=== PATIENT | female | born 1960 | race Caucasian/White ===

== ENCOUNTER → 2018-03-05 10:17 | Outpatient (CLI) | payer BC, SELFPAY ==
[2018-03-05 10:38] LABS: Hemoglobin A1C 8.3 % (0.0-7.0)
[2018-03-05 12:57] LABS: Alanine Aminotransferase 52 U/L (12-78); Albumin Level 3.8 gm/dL (3.4-5.0); Albumin/Globulin Ratio 1.1 (1.1-1.8); Alkaline Phosphatase 114 U/L (46-116); Aspartate Amino Transferase 31 U/L (15-37); Bilirubin,Total 1.4 mg/dL (0.2-1.0); Blood Urea Nitrogen 10 mg/dL (7-18); Calcium 9.1 mg/dL (8.5-10.1); Carbon Dioxide 28 mmol/L (21.0-32.0); Chloride 103 mmol/L (98-107); Chol/HDL Ratio 4.2 (1-3.5); Cholesterol 155 mg/dL (140-200); Creatinine,Serum 0.63 mg/dL (0.55-1.02); Estimated Glomerular Filt Rate 97 ml/min (>60); GFR (African American) 117 ML/MIN (>60); Globulin 3.4 gm/dl (1.3-3.2); Glucose 187 mg/dL (74-106); HDL Cholesterol 37 mg/dL (29-89); LDL Cholesterol 88 mg/dL (0-130); Sodium 141 mmol/L (136-145); Thyroid Stimulating Hormone 0.81 uIU/ml (0.358-3.740); Total Protein,Serum 7.2 gm/dL (6.4-8.2); Triglycerides 150 mg/dL (30-200); VLDL Cholesterol 30 mg/dL (0-40)
== END ==
PROVIDERS: Visit Provider Internal Medicine Adolescent Medicine
DX: E11.29 Type 2 diabetes mellitus with other diabetic kidney complication (principal); E03.9 Hypothyroidism, unspecified
CPT/HCPCS: 36415; 80053; 80061; 83036; 84443

== ENCOUNTER → 2018-06-11 10:43 | Outpatient (CLI) | payer BC, SELFPAY ==
[2018-06-11 13:14] LABS: Alanine Aminotransferase 36 U/L (12-78); Albumin Level 3.9 gm/dL (3.4-5.0); Albumin/Globulin Ratio 1.1 (1.1-1.8); Alkaline Phosphatase 115 U/L (46-116); Anion Gap 14.1 mEq/L (5-15); Aspartate Amino Transferase 17 U/L (15-37); Bilirubin,Total 1.4 mg/dL (0.2-1.0); Blood Urea Nitrogen 12 mg/dL (7-18); Calcium 8.8 mg/dL (8.5-10.1); Carbon Dioxide 29 mmol/L (21.0-32.0); Chloride 105 mmol/L (98-107); Chol/HDL Ratio 3.8 (1-3.5); Cholesterol 142 mg/dL (140-200); Creatinine,Serum 0.84 mg/dL (0.55-1.02); Estimated Glomerular Filt Rate 70 ml/min (>60); GFR (African American) 84 ML/MIN (>60); Globulin 3.5 gm/dl (1.3-3.2); Glucose 142 mg/dL (74-106); HDL Cholesterol 37 mg/dL (29-89); LDL Cholesterol 87 mg/dL (0-130); Potassium 4.1 mmoL/L (3.5-5.1); Sodium 144 mmol/L (136-145); Total Protein,Serum 7.4 gm/dL (6.4-8.2); Triglycerides 89 mg/dL (30-200); VLDL Cholesterol 18 mg/dL (0-40)
== END ==
PROVIDERS: Visit Provider Internal Medicine Adolescent Medicine
DX: E11.29 Type 2 diabetes mellitus with other diabetic kidney complication (principal); I10 Essential (primary) hypertension
CPT/HCPCS: 36415; 80053; 80061; 83036

== ENCOUNTER → 2018-06-15 17:20 | Outpatient (CLI) | payer BC, SELFPAY ==
--- NOTE | 2018-06-15 17:36 | XR_ITS ---
EXAM: XR lumbar spine min 4V HISTORY: ITS.REASON: LOW BACK PAIN AT MULTIPLE SITES ORDERING PHYSICIAN: Chino Siegel MD PATIENT AGE: 57 years COMPARISON: None FINDINGS: There is minimal lumbar curvature convex left. Alignment. No acute fracture or dislocation. Mild degenerative disc disease is present at L4-5 with mild facet arthritic changes noted at L4-5 and L5-S1. No lytic or blastic change. IMPRESSION: Mild lumbar spondylosis as described above with no acute finding
== END ==
PROVIDERS: PCP Internal Medicine Adolescent Medicine; Visit Provider Internal Medicine Adolescent Medicine
DX: M54.5 Low back pain (principal)
CPT/HCPCS: 72110

== ENCOUNTER → 2018-08-26 15:35 | Outpatient (CLI) | payer BC, SELFPAY ==
--- NOTE | 2018-08-26 15:42 | XR_ITS ---
XR cervical spine w flex/ext CLINICAL INDICATION: Neck pain ITS.REASON: CERVICAL RADICULOPATHY ORDERING PHYSICIAN: Chino Siegel MD PATIENT AGE: 57 years Comparison: None FINDINGS: Flexion-extension views are obtained of the cervical spine. No abnormal subluxation evident in flexion or extension. The disc spaces are well-preserved. IMPRESSION: No abnormal subluxation in flexion or extension
--- NOTE | 2018-08-26 15:42 | XR_ITS ---
EXAM: XR cervical spine 5V HISTORY: Left-sided neck pain with tingling ITS.REASON: CERVICAL RADICULOPATHY ORDERING PHYSICIAN: Chino Siegel MD PATIENT AGE: 57 years COMPARISON: None FINDINGS: Normal alignment. No fracture or dislocation. No lytic or blastic change. No significant degenerative change. The disc spaces are preserved. Carotid calcifications are present on both sides. IMPRESSION: 1. Negative cervical spine. 2. Carotid artery disease
== END ==
PROVIDERS: PCP Internal Medicine Adolescent Medicine; Visit Provider Internal Medicine Adolescent Medicine
DX: M54.12 Radiculopathy, cervical region (principal)
CPT/HCPCS: 72050; 72052

== ENCOUNTER → 2018-09-17 11:47 | Outpatient (CLI) | payer BC, SELFPAY ==
[2018-09-17 13:32] LABS: Alanine Aminotransferase 67 U/L (12-78); Albumin Level 3.7 gm/dL (3.4-5.0); Albumin/Globulin Ratio 1.1 (1.1-1.8); Alkaline Phosphatase 87 U/L (46-116); Anion Gap 9.9 mEq/L (5-15); Aspartate Amino Transferase 31 U/L (15-37); Bilirubin,Total 1.4 mg/dL (0.2-1.0); Blood Urea Nitrogen 13 mg/dL (7-18); Calcium 8.7 mg/dL (8.5-10.1); Carbon Dioxide 32 mmol/L (21.0-32.0); Chloride 103 mmol/L (98-107); Chol/HDL Ratio 3.8 (1-3.5); Cholesterol 152 mg/dL (140-200); Creatinine,Serum 0.77 mg/dL (0.55-1.02); Estimated Glomerular Filt Rate 77 ml/min (>60); GFR (African American) 93 ML/MIN (>60); Globulin 3.4 gm/dl (1.3-3.2); Glucose 160 mg/dL (74-106); HDL Cholesterol 40 mg/dL (29-89); LDL Cholesterol 81 mg/dL (0-130); Potassium 3.9 mmoL/L (3.5-5.1); Sodium 141 mmol/L (136-145); Thyroid Stimulating Hormone 2.76 uIU/ml (0.358-3.740); Total Protein,Serum 7.1 gm/dL (6.4-8.2); Triglycerides 156 mg/dL (30-200); VLDL Cholesterol 31 mg/dL (0-40)
[2018-09-17 13:55] LABS: Hemoglobin A1C 8.4 % (0.0-7.0)
== END ==
PROVIDERS: Visit Provider Internal Medicine Adolescent Medicine
DX: E11.29 Type 2 diabetes mellitus with other diabetic kidney complication (principal); E03.9 Hypothyroidism, unspecified; M54.5 Low back pain
CPT/HCPCS: 36415; 80053; 80061; 83036; 84443

== ENCOUNTER → 2019-03-23 10:45 | Outpatient (CLI) | payer BC, SELFPAY ==
[2019-03-23 11:26] LABS: Hemoglobin A1C 7.8 % (0.0-7.0)
== END ==
PROVIDERS: Visit Provider Internal Medicine Adolescent Medicine
DX: R60.0 Localized edema (principal)
CPT/HCPCS: 36415; 83036

== ENCOUNTER → 2019-07-08 09:25 | Outpatient (CLI) | payer BC, SELFPAY ==
[2019-07-08 09:52] LABS: Basophils % 0.4 % (0.1-2.0); Eosinophils # 0.3 K/mm3 (0.0-0.4); Eosinophils % 4.1 % (0.1-12.0); Hematocrit 46.8 % (37.0-47.0); Hemoglobin 14.9 g/dL (12.2-16.2); Lymphocytes % 24.5 % (10-50); Mean Corpuscular HGB Conc 31.8 g/dL (31.8-35.4); Mean Corpuscular Hemoglobin 26.9 pg (27.0-31.2); Mean Corpuscular Volume 84.4 fl (81-99); Mean Platelet Volume 7.2 fl (7.4-10.4); Monocytes # 0.6 K/mm3 (0.1-1.0); Monocytes % 7.4 % (1.7-9.3); Neutrophils # 5.1 K/mm3 (1.8-7.8); Neutrophils % 63.5 % (37.0-80.0); Platelet Count 267 K/mm3 (142-424); Red Blood Count 5.54 M/mm3 (4.20-5.40); Red Cell Distribution Width 14.9 % (11.5-17.5)
[2019-07-08 10:53] LABS: Alanine Aminotransferase 33 U/L (12-78); Albumin Level 3.7 gm/dL (3.4-5.0); Alkaline Phosphatase 93 U/L (46-116); Anion Gap 11.6 mEq/L (5-15); Aspartate Amino Transferase 23 U/L (15-37); Bilirubin,Total 1.4 mg/dL (0.2-1.0); Blood Urea Nitrogen 12 mg/dL (7-18); Calcium 8.5 mg/dL (8.5-10.1); Carbon Dioxide 31 mmol/L (21.0-32.0); Chloride 104 mmol/L (98-107); Chol/HDL Ratio 4.4 (1-3.5); Cholesterol 161 mg/dL (140-200); Creatinine,Serum 0.67 mg/dL (0.55-1.02); Estimated Glomerular Filt Rate 90 ml/min (>60); GFR (African American) 109 ML/MIN (>60); Globulin 3.6 gm/dl (1.3-3.2); Glucose 144 mg/dL (74-106); HDL Cholesterol 37 mg/dL (29-89); LDL Cholesterol 96 mg/dL (0-130); Potassium 4.6 mmoL/L (3.5-5.1); Sodium 142 mmol/L (136-145); Thyroid Stimulating Hormone 3.02 uIU/ml (0.358-3.740); Total Protein,Serum 7.3 gm/dL (6.4-8.2); Triglycerides 138 mg/dL (30-200); VLDL Cholesterol 28 mg/dL (0-40)
[2019-07-08 11:41] LABS: Hemoglobin A1C 8.1 % (0.0-7.0)
== END ==
PROVIDERS: Visit Provider Internal Medicine Adolescent Medicine
DX: E11.29 Type 2 diabetes mellitus with other diabetic kidney complication (principal); E03.9 Hypothyroidism, unspecified; K21.9 Gastro-esophageal reflux disease without esophagitis
CPT/HCPCS: 36415; 80053; 80061; 83036; 84443; 85025

== ENCOUNTER → 2019-08-25 16:01 | Outpatient (CLI) | payer BC, SELFPAY ==
--- NOTE | 2019-08-25 16:04 | MM_ITS ---
PROCEDURE: MM DIG SCREENING MAMM BI W/CAD CLINICAL INDICATION: SCREENING There is a history of breast cancer patient's paternal aunts. There has been a previous cyst aspiration right breast for benign disease. COMPARISON: DMSB DIG MAMM-SCREEN ANUJ W/CAD from 05/25/2017 TECHNIQUE: Standard CC and MLO images were obtained. R2 CAD reviewed. FINDINGS: Moderate scattered fibroglandular densities are seen throughout both breast most prominent upper outer quadrants and findings of bilateral and symmetrical. There few benign-appearing microcalcifications in each breast.. There is no suspicious lesion in either breast and no suspicious microcalcifications. There are fatty replaced nodes in both axilla. IMPRESSION: Moderate breast density with no suspicious lesions seen BI-RAD Category: 2 Benign Finding(s) FOLLOW-UP: 1YR 1 Year Follow-up (A letter has been sent to the patient regarding results of the study.) Dictated by: Dr. Petros Giron MD 08/29/2019 10:[address] Petros Giron MD in [place] 08/29/2019 10:08
== END ==
PROVIDERS: PCP Internal Medicine Adolescent Medicine; Visit Provider Internal Medicine Adolescent Medicine
DX: Z12.31 Encounter for screening mammogram for malignant neoplasm of breast (principal)
CPT/HCPCS: 77067

== ENCOUNTER → 2019-10-28 10:36 | Outpatient (CLI) | payer BC, SELFPAY ==
[2019-10-28 10:51] LABS: Basophils % 0.3 % (0.1-2.0); Eosinophils # 0.4 K/mm3 (0.0-0.4); Hematocrit 44.2 % (37.0-47.0); Hemoglobin 14.2 g/dL (12.2-16.2); Lymphocytes # 1.8 K/mm3 (0.7-4.5); Lymphocytes % 14.2 % (10-50); Mean Corpuscular HGB Conc 32.1 g/dL (31.8-35.4); Mean Corpuscular Hemoglobin 27.2 pg (27.0-31.2); Mean Corpuscular Volume 84.8 fl (81-99); Mean Platelet Volume 7.8 fl (7.4-10.4); Monocytes # 0.8 K/mm3 (0.1-1.0); Monocytes % 6.6 % (1.7-9.3); Neutrophils # 9.3 K/mm3 (1.8-7.8); Neutrophils % 75.9 % (37.0-80.0); Platelet Count 290 K/mm3 (142-424); Red Blood Count 5.21 M/mm3 (4.20-5.40); Red Cell Distribution Width 15.3 % (11.5-17.5); White Blood Count 12.3 K/mm3 (4.8-10.8)
[2019-10-28 11:59] LABS: Alanine Aminotransferase 23 U/L (12-78); Albumin Level 3.8 gm/dL (3.4-5.0); Albumin/Globulin Ratio 1.1 (1.1-1.8); Alkaline Phosphatase 97 U/L (46-116); Anion Gap 13.5 mEq/L (5-15); Aspartate Amino Transferase 12 U/L (15-37); Bilirubin,Total 1.5 mg/dL (0.2-1.0); Blood Urea Nitrogen 19 mg/dL (7-18); Calcium 9.2 mg/dL (8.5-10.1); Carbon Dioxide 30 mmol/L (21.0-32.0); Chloride 105 mmol/L (98-107); Chol/HDL Ratio 4.5 (1-3.5); Cholesterol 166 mg/dL (140-200); Creatinine,Serum 0.81 mg/dL (0.55-1.02); Estimated Glomerular Filt Rate 72 ml/min (>60); GFR (African American) 88 ML/MIN (>60); Globulin 3.4 gm/dl (1.3-3.2); Glucose 142 mg/dL (74-106); HDL Cholesterol 37 mg/dL (29-89); LDL Cholesterol 93 mg/dL (0-130); Potassium 4.5 mmoL/L (3.5-5.1); Sodium 144 mmol/L (136-145); Thyroid Stimulating Hormone 1.39 uIU/ml (0.358-3.740); Total Protein,Serum 7.2 gm/dL (6.4-8.2); Triglycerides 181 mg/dL (30-200); VLDL Cholesterol 36 mg/dL (0-40)
[2019-10-28 12:42] LABS: Hemoglobin A1C 7.6 % (0.0-7.0)
== END ==
PROVIDERS: Visit Provider Internal Medicine Adolescent Medicine
DX: E11.29 Type 2 diabetes mellitus with other diabetic kidney complication (principal); E03.9 Hypothyroidism, unspecified
CPT/HCPCS: 36415; 80053; 80061; 83036; 84443; 85025

== ENCOUNTER → 2020-05-07 10:15 | Outpatient (CLI) | payer BC, SELFPAY ==
[2020-05-07 11:04] LABS: Basophils % 0.4 % (0.1-2.0); Eosinophils # 0.3 K/mm3 (0.0-0.4); Eosinophils % 3.3 % (0.1-12.0); Hematocrit 47.6 % (37.0-47.0); Hemoglobin 15.6 g/dL (12.2-16.2); Lymphocytes # 2.3 K/mm3 (0.7-4.5); Lymphocytes % 25.7 % (10-50); Mean Corpuscular HGB Conc 32.8 g/dL (31.8-35.4); Mean Corpuscular Volume 85.2 fl (81-99); Mean Platelet Volume 7.6 fl (7.4-10.4); Monocytes # 0.6 K/mm3 (0.1-1.0); Monocytes % 6.9 % (1.7-9.3); Neutrophils # 5.7 K/mm3 (1.8-7.8); Neutrophils % 63.6 % (37.0-80.0); Platelet Count 276 K/mm3 (142-424); Red Blood Count 5.59 M/mm3 (4.20-5.40); Red Cell Distribution Width 16.2 % (11.5-17.5)
[2020-05-07 12:21] LABS: Chloride 95 mmol/L (98-107); Potassium 4.1 mmoL/L (3.5-5.1); Sodium 140 mmol/L (136-145)
[2020-05-07 12:23] LABS: Blood Urea Nitrogen 14 mg/dl (7-17); Estimated Glomerular Filt Rate 85 ml/min (>60); GFR (African American) 103 ML/MIN (>60)
[2020-05-07 12:24] LABS: Albumin Level 4.4 g/dl (3.5-5.0); Albumin/Globulin Ratio 1.5 (1.1-1.8); Alkaline Phosphatase 93 U/L (38-126); Anion Gap 16.1 mEq/L (5-15); Bilirubin,Total 1.4 mg/dl (0.2-1.3); Calcium 9.3 mg/dl (8.4-10.2); Carbon Dioxide 33 mmol/L (22.0-30.0); Cholesterol 176 mg/dl (140-200); Glucose 127 mg/dl (74-100); HDL Cholesterol 46 mg/dl (40-60); Total Protein,Serum 7.4 g/dl (6.3-8.2); Triglycerides 235 mg/dl (30-150); VLDL Cholesterol 47 mg/dL (0-40)
[2020-05-07 12:35] LABS: Direct LDL Cholesterol 102.73 mg/dL (100-129)
[2020-05-07 12:40] LABS: Alanine Aminotransferase 46 U/L (12-78); Aspartate Amino Transferase 39 U/L (14-36)
[2020-05-07 13:06] LABS: Hemoglobin A1C 8.7 % (4.0-6.0)
[2020-05-07 13:11] LABS: Thyroid Stimulating Hormone 3.19 uIU/mL (0.465-4.68)
[2020-05-07 15:17] LABS: Chol/HDL Ratio 3.8 (1-3.5)
== END ==
PROVIDERS: Visit Provider Internal Medicine Adolescent Medicine
DX: E11.29 Type 2 diabetes mellitus with other diabetic kidney complication (principal); E03.9 Hypothyroidism, unspecified
CPT/HCPCS: 36415; 80053; 80061; 83036; 84443; 85025

== ENCOUNTER → 2020-08-10 09:40 | Outpatient (CLI) | payer BC, SELFPAY ==
[2020-08-10 11:11] LABS: Chloride 98 mmol/L (98-107); Sodium 142 mmol/L (136-145)
[2020-08-10 11:12] LABS: Potassium 3.8 mmoL/L (3.5-5.1)
[2020-08-10 11:14] LABS: Alanine Aminotransferase 59 U/L (12-78); Albumin Level 4.2 g/dl (3.5-5.0); Albumin/Globulin Ratio 1.4 (1.1-1.8); Alkaline Phosphatase 86 U/L (38-126); Anion Gap 12.8 mEq/L (5-15); Aspartate Amino Transferase 48 U/L (14-36); Bilirubin,Total 1.3 mg/dl (0.2-1.3); Blood Urea Nitrogen 14 mg/dl (7-17); Calcium 9.7 mg/dl (8.4-10.2); Carbon Dioxide 35 mmol/L (22.0-30.0); Chol/HDL Ratio 3.3 (1-3.5); Cholesterol 138 mg/dl (140-200); Estimated Glomerular Filt Rate 85 ml/min (>60); GFR (African American) 103 ML/MIN (>60); Globulin 3.1 g/dL (1.3-3.2); Glucose 200 mg/dl (74-100); HDL Cholesterol 42 mg/dl (40-60); Total Protein,Serum 7.3 g/dl (6.3-8.2); Triglycerides 213 mg/dl (30-150); VLDL Cholesterol 43 mg/dL (0-40)
[2020-08-10 11:43] LABS: Direct LDL Cholesterol 68.08 mg/dL (100-129)
== END ==
PROVIDERS: Visit Provider Internal Medicine Adolescent Medicine
DX: E11.29 Type 2 diabetes mellitus with other diabetic kidney complication (principal); E78.5 Hyperlipidemia, unspecified
CPT/HCPCS: 36415; 80053; 80061; 83036

== ENCOUNTER 2020-08-19 14:04 | Emergency (ER) | payer BC, SELFPAY ==
[2020-08-19 14:27] VITALS: BP 219/109; PULSE 85; RESP 14; TEMP 37.2; O2SAT 99; BMI 29.1
--- NOTE | 2020-08-19 14:56 | HMH.EDUTC ---
[facility] [place] Clinical Impression: Exposure to COVID-19 virus, Encounter for laboratory testing for COVID-19 virus Disposition: Home, Self-Care Condition on Discharge: Good Instructions: Preventing the Spread of Coronavirus Discharge Instructions Additional Instructions: *Monitor Temp, Over the counter Motrin or Tylenol as directed/as needed Tylenol every 4 hours and Motrin every 6 hours (as long as your family doctor has told you that you can take it) for fever or pain. and straight to ER if unable to lower temp less than 101.0 after medication given *Warm salt water gargles may help to soothe the throat *Throat Lozenges *Warm fluids like tea with honey may help to soothe the throat *Sleep elevated *Humidifier/Vaporizer Follow up IMMEDIATELY for new or worsening symptoms or no Noticeable improvement over the next 48-72 hours. 911 for difficulty breathing or swallowing You was tested for today for COVID19 your test result should be back later this evening, you may call back later this evening to see if your test results are back and the result You was given a handout with instructions for Self Quarantine and Self isolation for while you wait on test results and what to do if they are positive Referrals: Chino Siegel MD [Primary Care Provider] - As needed Forms: Work/School Release Time of Disposition: 14:58 Medical Decision Making - Robbie Inquiry Pt receiving controlled substance: No Robbie was queried for this patient: No Vital Signs: 08/19/20 14:27 Temperature 98.9 F Temperature Source Oral Pulse Rate [Right Brachial] 85 Respiratory Rate 14 Blood Pressure [Right Arm] 219/109 H Blood Pressure Mean [Right Arm] 145 Blood Pressure Source [Right Arm] Automatic Cuff Blood Pressure Position [Right Arm] Sitting 02 Sat by Pulse Oximetry 99 Oxygen Delivery Method Room Air [facility] [place] - General Stated complaint: Covid exposure Time Seen by Provider: 08/19/20 14:56 Mode of Arrival: Ambulatory Source of Information: Patient Limitations: No Limitations Description of Symptoms (Recalled from Triage Doc. 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 State that she has not had any symptoms but was recommended that she get tested due to close contact - Related Data Allergies Allergy/AdvReac Type Severity Reaction Status Date / Time Contrast Media, Iodine Allergy Unknown I-RASH Uncoded 10/12/17 15:08 Related - Worker's Comp Is this a Worker's Comp case?: No [facility] History - Hepatitis A Screen Drug use history?: No High risk sexual behaviors?: No History of sexually transmitted infection?: No Currently employed?: No Childcare worker?: No Do you have indoor plumbing?: Yes Do you have electricity?: Yes Attestation statement:: This patient has been screened for Hepatitis A risk factors. I have reviewed the patient's past medical history: Yes - Social History Alcohol Intake: never Occupational Status: other ROS Obtained: Yes All systems reviewed & no additional complaints, Yes Systems reviewed as appropriate & no additional complaints - Constitutional Constitutional: Reports system reviewed and no additional complaints, except as docu, Denies body ache, Denies fatigue, Denies fever(s), Denies headache(s) - ENT Ears, Nose, Mouth, and Throat: Denies nasal congestion, Denies nasal discharge, Denies sinus pressure, Denies sore throat - Cardiovascular Cardiovascular: Reports system reviewed and no additional complaints, except as docu - Respiratory Respiratory: Yes system reviewed and no additional complain
[2020-08-19 15:05] VITALS: BP 219/109; PULSE 85; RESP 14; TEMP 37.2; O2SAT 99
== END 2020-08-19 15:06 | disposition home or self-care (01) ==
PROVIDERS: Emergency Provider Nurse Practitioner; PCP Internal Medicine Adolescent Medicine
DX: Z20.828 Contact with and (suspected) exposure to other viral communicable diseases (principal)
CPT/HCPCS: 99201; U0003

== ENCOUNTER → 2021-02-08 08:55 | Outpatient (CLI) | payer BC, SELFPAY ==
[2021-02-08 10:55] LABS: Hemoglobin A1C 8.4 % (4.0-6.0)
[2021-02-08 11:09] LABS: Chloride 99 mmol/L (98-107); Potassium 3.9 mmoL/L (3.5-5.1); Sodium 142 mmol/L (136-145)
[2021-02-08 11:11] LABS: Alanine Aminotransferase 29 U/L (12-78); Albumin Level 4.7 g/dl (3.5-5.0); Albumin/Globulin Ratio 1.6 (1.1-1.8); Alkaline Phosphatase 97 U/L (38-126); Anion Gap 14.9 mEq/L (5-15); Aspartate Amino Transferase 33 U/L (14-36); Bilirubin,Total 1.5 mg/dl (0.2-1.3); Blood Urea Nitrogen 9 mg/dl (7-17); Carbon Dioxide 32 mmol/L (22.0-30.0); Estimated Glomerular Filt Rate 102 ml/min (>60); GFR (African American) 123 ML/MIN (>60); Globulin 2.9 g/dL (1.3-3.2); Total Protein,Serum 7.6 g/dl (6.3-8.2)
[2021-02-08 11:12] LABS: Calcium 9.3 mg/dl (8.4-10.2); Chol/HDL Ratio 4.4 (1-3.5); Cholesterol 194 mg/dl (140-200); Glucose 138 mg/dl (74-100); HDL Cholesterol 44 mg/dl (40-60); Triglycerides 178 mg/dl (30-150); VLDL Cholesterol 36 mg/dL (0-40)
[2021-02-08 11:23] LABS: Direct LDL Cholesterol 123.31 mg/dL (100-129)
[2021-02-08 11:43] LABS: Thyroid Stimulating Hormone 3.46 uIU/mL (0.465-4.68)
== END ==
PROVIDERS: Visit Provider Internal Medicine Adolescent Medicine
DX: E11.29 Type 2 diabetes mellitus with other diabetic kidney complication (principal); E03.9 Hypothyroidism, unspecified
CPT/HCPCS: 36415; 80053; 80061; 83036; 84443

== ENCOUNTER → 2021-06-14 11:30 | Outpatient (CLI) | payer BC, SELFPAY ==
[2021-06-14 11:52] LABS: Basophils # 0.1 K/mm3 (0-0.2); Basophils % 0.6 % (0.1-2.0); Eosinophils # 0.3 K/mm3 (0.0-0.4); Eosinophils % 3.3 % (0.1-12.0); Hematocrit 47.7 % (37.0-47.0); Lymphocytes # 1.9 K/mm3 (0.7-4.5); Mean Corpuscular HGB Conc 31.5 g/dL (31.8-35.4); Mean Corpuscular Hemoglobin 28.6 pg (27.0-31.2); Mean Corpuscular Volume 90.9 fl (81-99); Mean Platelet Volume 7.7 fl (7.4-10.4); Monocytes # 0.7 K/mm3 (0.1-1.0); Monocytes % 8.1 % (1.7-9.3); Neutrophils # 5.8 K/mm3 (1.8-7.8); Neutrophils % 66.1 % (37.0-80.0); Platelet Count 310 K/mm3 (142-424); Red Blood Count 5.25 M/mm3 (4.20-5.40); Red Cell Distribution Width 14.7 % (11.5-17.5); White Blood Count 8.8 K/mm3 (4.8-10.8)
[2021-06-14 12:01] LABS: Hemoglobin A1C 8.5 % (4.0-6.0)
[2021-06-14 15:59] LABS: Alanine Aminotransferase 26 U/L (12-78); Albumin Level 4.2 g/dl (3.5-5.0); Albumin/Globulin Ratio 1.5 (1.1-1.8); Alkaline Phosphatase 93 U/L (38-126); Anion Gap 17.2 mEq/L (5-15); Aspartate Amino Transferase 31 U/L (14-36); Bilirubin,Total 1.2 mg/dl (0.2-1.3); Blood Urea Nitrogen 11 mg/dl (7-17); Calcium 8.9 mg/dl (8.4-10.2); Carbon Dioxide 29 mmol/L (22.0-30.0); Chloride 102 mmol/L (98-107); Cholesterol 185 mg/dl (140-200); Estimated Glomerular Filt Rate 85 ml/min (>60); GFR (African American) 103 ML/MIN (>60); Globulin 2.8 g/dL (1.3-3.2); Glucose 117 mg/dl (74-100); HDL Cholesterol 46 mg/dl (40-60); Potassium 4.2 mmoL/L (3.5-5.1); Sodium 144 mmol/L (136-145); Triglycerides 141 mg/dl (30-150); VLDL Cholesterol 28 mg/dL (0-40)
[2021-06-14 16:10] LABS: Direct LDL Cholesterol 113.49 mg/dL (100-129)
[2021-06-14 16:30] LABS: Thyroid Stimulating Hormone 2.63 uIU/mL (0.465-4.68)
== END ==
PROVIDERS: Visit Provider Internal Medicine Adolescent Medicine
DX: E11.29 Type 2 diabetes mellitus with other diabetic kidney complication (principal); E03.9 Hypothyroidism, unspecified
CPT/HCPCS: 36415; 80053; 80061; 83036; 84443; 85025

== ENCOUNTER → 2021-10-21 10:33 | Outpatient (CLI) | payer BC, SELFPAY ==
[2021-10-21 11:42] LABS: Hemoglobin A1C 6.8 % (4.0-6.0)
[2021-10-21 11:43] LABS: Chloride 104 mmol/L (98-107)
[2021-10-21 11:44] LABS: Potassium 4.1 mmoL/L (3.5-5.1); Sodium 142 mmol/L (136-145)
[2021-10-21 11:46] LABS: Alanine Aminotransferase 19 U/L (12-78); Alkaline Phosphatase 127 U/L (38-126); Aspartate Amino Transferase 24 U/L (14-36); Blood Urea Nitrogen 12 mg/dl (7-17); Cholesterol 220 mg/dl (140-200); Estimated Glomerular Filt Rate 73 ml/min (>60); GFR (African American) 88 ML/MIN (>60); Triglycerides 233 mg/dl (30-150); VLDL Cholesterol 47 mg/dL (0-40)
[2021-10-21 11:47] LABS: Albumin Level 4.3 g/dl (3.5-5.0); Albumin/Globulin Ratio 1.5 (1.1-1.8); Calcium 9.5 mg/dl (8.4-10.2); Chol/HDL Ratio 4.7 (1-3.5); Globulin 2.9 g/dL (1.3-3.2); Glucose 101 mg/dl (74-100); HDL Cholesterol 47 mg/dl (40-60); Total Protein,Serum 7.2 g/dl (6.3-8.2)
[2021-10-21 11:58] LABS: Direct LDL Cholesterol 127.75 mg/dL (100-129)
[2021-10-21 12:17] LABS: Thyroid Stimulating Hormone 6.44 uIU/mL (0.465-4.68)
[2021-10-21 13:56] LABS: Anion Gap 12.1 mEq/L (5-15); Carbon Dioxide 30 mmol/L (22.0-30.0)
== END ==
PROVIDERS: Visit Provider Internal Medicine Adolescent Medicine
DX: E11.29 Type 2 diabetes mellitus with other diabetic kidney complication (principal); E03.9 Hypothyroidism, unspecified
CPT/HCPCS: 36415; 80053; 80061; 83036; 84443

== ENCOUNTER → 2022-02-16 07:07 | Outpatient (CLI) | payer BC, SELFPAY ==
[2022-02-16 08:08] LABS: Hemoglobin A1C 7.3 % (4.0-6.0)
[2022-02-16 08:13] LABS: Chloride 106 mmol/L (98-107)
[2022-02-16 08:14] LABS: Potassium 4.3 mmoL/L (3.5-5.1); Sodium 142 mmol/L (136-145)
[2022-02-16 08:16] LABS: Alanine Aminotransferase 20 U/L (12-78); Anion Gap 11.3 mEq/L (5-15); Aspartate Amino Transferase 29 U/L (14-36); Blood Urea Nitrogen 12 mg/dl (7-17); Carbon Dioxide 29 mmol/L (22.0-30.0); Estimated Glomerular Filt Rate 85 ml/min (>60); GFR (African American) 103 ML/MIN (>60)
[2022-02-16 08:17] LABS: Albumin Level 4.2 g/dl (3.5-5.0); Albumin/Globulin Ratio 1.4 (1.1-1.8); Alkaline Phosphatase 108 U/L (38-126); Bilirubin,Total 1.4 mg/dl (0.2-1.3); Calcium 9.7 mg/dl (8.4-10.2); Chol/HDL Ratio 5.4 (1-3.5); Cholesterol 204 mg/dl (140-200); Globulin 2.9 g/dL (1.3-3.2); Glucose 151 mg/dl (74-100); HDL Cholesterol 38 mg/dl (40-60); Total Protein,Serum 7.1 g/dl (6.3-8.2); Triglycerides 296 mg/dl (30-150); VLDL Cholesterol 59 mg/dL (0-40)
[2022-02-16 08:28] LABS: Direct LDL Cholesterol 121.66 mg/dL (100-129)
[2022-02-16 08:48] LABS: Thyroid Stimulating Hormone 2.31 uIU/mL (0.465-4.68)
== END ==
PROVIDERS: Visit Provider Internal Medicine Adolescent Medicine
DX: E11.29 Type 2 diabetes mellitus with other diabetic kidney complication (principal); E03.9 Hypothyroidism, unspecified
CPT/HCPCS: 36415; 80053; 80061; 83036; 84443

== ENCOUNTER → 2022-07-07 09:12 | Outpatient (CLI) | payer BC, SELFPAY ==
[2022-07-07 10:31] LABS: Chloride 98 mmol/L (98-107); Hemoglobin A1C 12.2 % (4.0-6.0)
[2022-07-07 10:32] LABS: Potassium 3.8 mmoL/L (3.5-5.1); Sodium 139 mmol/L (136-145)
[2022-07-07 10:34] LABS: Alanine Aminotransferase 29 U/L (12-78); Anion Gap 12.8 mEq/L (5-15); Aspartate Amino Transferase 34 U/L (14-36); Blood Urea Nitrogen 14 mg/dl (7-17); Carbon Dioxide 32 mmol/L (22.0-30.0); Estimated Glomerular Filt Rate 85 ml/min (>60); GFR (African American) 103 ML/MIN (>60)
[2022-07-07 10:35] LABS: Albumin Level 3.7 g/dl (3.5-5.0); Albumin/Globulin Ratio 1.3 (1.1-1.8); Alkaline Phosphatase 150 U/L (38-126); Bilirubin,Total 0.9 mg/dl (0.2-1.3); Calcium 7.9 mg/dl (8.4-10.2); Chol/HDL Ratio 5.5 (1-3.5); Cholesterol 210 mg/dl (140-200); Globulin 2.9 g/dL (1.3-3.2); Glucose 277 mg/dl (74-100); HDL Cholesterol 38 mg/dl (40-60); Total Protein,Serum 6.6 g/dl (6.3-8.2); Triglycerides 389 mg/dl (30-150); VLDL Cholesterol 78 mg/dL (0-40)
[2022-07-07 10:46] LABS: Direct LDL Cholesterol 101.36 mg/dL (100-129)
== END ==
PROVIDERS: PCP Internal Medicine Adolescent Medicine; Visit Provider Internal Medicine Adolescent Medicine
DX: E11.29 Type 2 diabetes mellitus with other diabetic kidney complication (principal); E03.9 Hypothyroidism, unspecified
CPT/HCPCS: 36415; 80053; 80061; 83036

== ENCOUNTER → 2022-10-06 10:03 | Outpatient (CLI) | payer BC, SELFPAY ==
[2022-10-06 11:03] LABS: Hemoglobin A1C 8.2 % (4.0-6.0)
[2022-10-06 11:07] LABS: Chloride 107 mmol/L (98-107); Potassium 4.2 mmoL/L (3.5-5.1); Sodium 145 mmol/L (136-145)
[2022-10-06 11:10] LABS: Alanine Aminotransferase 21 U/L (12-78); Albumin Level 3.9 g/dl (3.5-5.0); Albumin/Globulin Ratio 1.4 (1.1-1.8); Alkaline Phosphatase 122 U/L (38-126); Anion Gap 11.2 mEq/L (5-15); Aspartate Amino Transferase 23 U/L (14-36); Bilirubin,Total 0.8 mg/dl (0.2-1.3); Blood Urea Nitrogen 16 mg/dl (7-17); Carbon Dioxide 31 mmol/L (22.0-30.0); Cholesterol 204 mg/dl (140-200); Estimated Glomerular Filt Rate 63 ml/min (>60); GFR (African American) 77 ML/MIN (>60); Globulin 2.7 g/dL (1.3-3.2); Total Protein,Serum 6.6 g/dl (6.3-8.2); Triglycerides 237 mg/dl (30-150); VLDL Cholesterol 47 mg/dL (0-40)
[2022-10-06 11:11] LABS: Calcium 9.4 mg/dl (8.4-10.2); Glucose 134 mg/dl (74-100); HDL Cholesterol 41 mg/dl (40-60)
== END ==
PROVIDERS: PCP Internal Medicine Adolescent Medicine; Visit Provider Internal Medicine Adolescent Medicine
DX: E11.29 Type 2 diabetes mellitus with other diabetic kidney complication (principal); E03.9 Hypothyroidism, unspecified
CPT/HCPCS: 36415; 80053; 80061; 83036

== ENCOUNTER → 2023-02-02 09:31 | Outpatient (CLI) | payer BC, SELFPAY ==
[2023-02-02 10:56] LABS: Chloride 104 mmol/L (98-107)
[2023-02-02 10:57] LABS: Sodium 141 mmol/L (136-145)
[2023-02-02 10:59] LABS: Alanine Aminotransferase 18 U/L (12-78); Albumin Level 3.7 g/dl (3.5-5.0); Albumin/Globulin Ratio 1.4 (1.1-1.8); Alkaline Phosphatase 103 U/L (38-126); Aspartate Amino Transferase 24 U/L (14-36); Bilirubin,Total 1.4 mg/dl (0.2-1.3); Blood Urea Nitrogen 16 mg/dl (7-17); Carbon Dioxide 29 mmol/L (22.0-30.0); Cholesterol 204 mg/dl (140-200); Estimated Glomerular Filt Rate 63 ml/min (>60); GFR (African American) 77 ML/MIN (>60); Globulin 2.7 g/dL (1.3-3.2); Total Protein,Serum 6.4 g/dl (6.3-8.2); Triglycerides 274 mg/dl (30-150); VLDL Cholesterol 55 mg/dL (0-40)
[2023-02-02 11:00] LABS: Calcium 8.3 mg/dl (8.4-10.2); Chol/HDL Ratio 5.1 (1-3.5); Glucose 187 mg/dl (74-100); HDL Cholesterol 40 mg/dl (40-60)
[2023-02-02 11:11] LABS: Direct LDL Cholesterol 122.67 mg/dL (100-129)
[2023-02-02 12:29] LABS: Hemoglobin A1C 12.2 % (4.0-6.0)
== END ==
PROVIDERS: PCP Internal Medicine Adolescent Medicine; Visit Provider Internal Medicine Adolescent Medicine
DX: E11.29 Type 2 diabetes mellitus with other diabetic kidney complication (principal); E03.9 Hypothyroidism, unspecified; I10 Essential (primary) hypertension
CPT/HCPCS: 36415; 80053; 80061; 83036; 84443

== ENCOUNTER → 2023-02-16 13:05 | Outpatient (CLI) | payer BC, SELFPAY ==
[2023-02-16 14:21] VITALS: BMI 28.3
== END ==
PROVIDERS: PCP Internal Medicine Adolescent Medicine; Visit Provider Internal Medicine Adolescent Medicine
DX: Z71.3 Dietary counseling and surveillance (principal); E11.9 Type 2 diabetes mellitus without complications
CPT/HCPCS: 97802

== ENCOUNTER → 2023-05-01 10:23 | Outpatient (CLI) | payer BC, SELFPAY ==
[2023-05-01 11:19] LABS: Alanine Aminotransferase 19 U/L (12-78); Albumin Level 4.2 g/dl (3.5-5.0); Albumin/Globulin Ratio 1.4 (1.1-1.8); Alkaline Phosphatase 116 U/L (38-126); Anion Gap 12.3 mEq/L (5-15); Aspartate Amino Transferase 23 U/L (14-36); Bilirubin,Total 1.1 mg/dl (0.2-1.3); Blood Urea Nitrogen 14 mg/dl (7-17); Calcium 9.3 mg/dl (8.4-10.2); Carbon Dioxide 32 mmol/L (22.0-30.0); Chloride 103 mmol/L (98-107); Estimated Glomerular Filt Rate 72 ml/min (>60); GFR (African American) 88 ML/MIN (>60); Globulin 2.9 g/dL (1.3-3.2); Glucose 112 mg/dl (74-100); Potassium 4.3 mmoL/L (3.5-5.1); Sodium 143 mmol/L (136-145); Total Protein,Serum 7.1 g/dl (6.3-8.2)
[2023-05-01 11:51] LABS: Thyroid Stimulating Hormone 0.23 uIU/mL (0.465-4.68)
[2023-05-01 12:38] LABS: Hemoglobin A1C 6.4 % (4.0-6.0)
== END ==
PROVIDERS: PCP Internal Medicine Adolescent Medicine; Visit Provider Internal Medicine Adolescent Medicine
DX: E11.29 Type 2 diabetes mellitus with other diabetic kidney complication (principal); E03.9 Hypothyroidism, unspecified
CPT/HCPCS: 36415; 80053; 83036; 84443

== ENCOUNTER → 2023-09-20 12:40 | Outpatient (CLI) | payer BC, SELFPAY ==
--- NOTE | 2023-09-20 12:45 | XR_ITS ---
FINAL REPORT CLINICAL HISTORY: DYSPNEA ON EXERTION COMPARISON: None FINDINGS: There is a small to moderate size right pleural effusion and a tiny left pleural effusion. Bibasilar atelectasis is present without evidence of pneumonia or pulmonary edema. The mediastinum has a normal appearance. The cardiac silhouette is unremarkable. IMPRESSION: Bilateral pleural effusions, more prominent on the right side than the left. Bibasilar atelectasis. Reviewed, Interpreted and Dictated by Olga Amato MD Transcribed by Laury Grace Authenticated and . [facility]
== END ==
PROVIDERS: PCP Internal Medicine Adolescent Medicine; Visit Provider Internal Medicine Adolescent Medicine
DX: R06.09 Other forms of dyspnea (principal)
CPT/HCPCS: 71046

== ENCOUNTER 2023-11-11 15:04 | Outpatient (CLI) | payer BC, SELFPAY | END 2023-11-11 23:59 | LOC: RT 15:05 | PROVIDERS: PCP Internal Medicine Adolescent Medicine; Visit Provider Internal Medicine Adolescent Medicine | DX: G47.33 Obstructive sleep apnea (adult) (pediatric) (principal); G47.36 Sleep related hypoventilation in conditions classified elsewhere | CPT/HCPCS: G0399 ==

== ENCOUNTER 2024-05-30 14:12 | Outpatient (CLI) | payer BC, SELFPAY ==
--- NOTE | 2024-05-30 14:16 | MM_ITS ---
PROCEDURE INFORMATION: Exam: MG Bilateral Screening 3D Mammography Exam date and time: 05/30/2024 2:15 PM Age: 63 years old Clinical indication: Screening examination TECHNIQUE: Imaging protocol: Bilateral Screening tomosynthesis and 2D mammography including computer-aided detection (CAD) when performed.Per the technologist the best possible images were obtained as the patient had difficulty with positioning. The exam is degraded by lack of ptotic positioning of the right MLO view. COMPARISON: 1. MG MM DIG SCREENING MAMM BI W/CAD 08/25/2019 4:13 PM 2. MG DMSB DIG MAMM-SCREEN ANUJ W/CAD 05/25/2017 10:02 AM FINDINGS: MAMMOGRAPHY: Breast composition: There are scattered areas of fibroglandular density. Mass: No suspicious masses. Architectural distortion: None. Calcifications: No suspicious calcifications. Asymmetric density: None. Skin thickening: None. Axillary adenopathy: None. IMPRESSION: No mammographic evidence of malignancy. Annual screening is recommended unless otherwise clinically indicated. ASSESSMENT: BI-RADS Category 1: Negative
== END 2024-05-30 23:59 | disposition home or self-care (01) ==
LOC: RAD 14:12
PROVIDERS: PCP Internal Medicine Adolescent Medicine; Visit Provider Internal Medicine Adolescent Medicine
DX: Z12.31 Encounter for screening mammogram for malignant neoplasm of breast (principal)
CPT/HCPCS: 77063; 77067

== ENCOUNTER 2024-11-06 09:51 | Outpatient (CLI) | payer BC, SELFPAY ==
--- NOTE | 2024-11-06 09:55 | XR_ITS ---
FINAL REPORT CLINICAL HISTORY: Foot pain for a few years COMPARISON: None FINDINGS: LEFT FOOT Three views show no evidence of acute displaced fracture or dislocation of the visualized bony architecture. There is mild degenerative change present in the hindfoot. Osteopenia is present. Mild calcaneal spurring is noted as well. IMPRESSION: Degenerative changes as described, without acute bony abnormality. Reviewed, Interpreted and Dictated by Olga Amato MD Transcribed by Laury Grace Authenticated and [facility]
--- NOTE | 2024-11-06 09:55 | XR_ITS ---
FINAL REPORT CLINICAL HISTORY: Foot pain for a few years COMPARISON: None FINDINGS: RIGHT FOOT: Three views show no evidence of acute displaced fracture or dislocation of the visualized bony architecture. There is mild degenerative change present in the hindfoot. Osteopenia is present. There is mild calcaneal spurring. IMPRESSION: Degenerative changes as described, without acute bony abnormality. Reviewed, Interpreted and Dictated by Olga Amato MD Transcribed by Laury Grace Authenticated and [facility]
== END 2024-11-06 23:59 | disposition home or self-care (01) ==
LOC: RAD 09:52
PROVIDERS: PCP Internal Medicine Adolescent Medicine; Visit Provider Nurse Practitioner
DX: M79.671 Pain in right foot (principal); M79.672 Pain in left foot
CPT/HCPCS: 73630